=== PATIENT | female | born 1985 ===

== ENCOUNTER 2021-04-18 20:27 | Inpatient (IN) | payer OTHER ==
[2021-04-18] MEDS ORDERED: DINOPROSTONE 10 MG VAG SUPP VG ONE (22:51)
[2021-04-18 23:19] LABS: Hematocrit 37.8 % (30.3-42.9); Hemoglobin 13.1 gm/dl (10.1-14.3); Mean Corpuscular HGB Conc 35 % (30-34); Mean Corpuscular Volume 98 fl (79-97); Platelet Count 214 K/mm3 (140-440); Red Blood Count 3.84 M/mm3 (3.65-5.03); Red Cell Distribution Width 13.6 % (13.2-15.2)
[2021-04-18] MEDS: LACTATED RINGERS 1,000 ML IV SCH (23:20)
[2021-04-18] MEDS ORDERED: TERBUTALINE 1 MG/1 ML INJ SUB-Q PRN (23:30)
[2021-04-18] MEDS ORDERED: BUTORPHANOL 2 MG/1 ML INJ IV PRN ×2 (23:30)
[2021-04-18] MEDS ORDERED: NALOXONE 0.4 MG/1 ML INJ IV PRN (23:30)
[2021-04-18] MEDS ORDERED: fentaNYL 100 MCG/2 ML INJ IV PRN (23:30)
[2021-04-18] MEDS ORDERED: METHYLERGONOVINE MALEATE 0.2 MG/ML VIAL IM PRN (23:30)
[2021-04-18] MEDS ORDERED: ACETAMINOPHEN 325 MG TAB PO PRN (23:30)
[2021-04-18] MEDS ORDERED: ONDANSETRON 4 MG/2 ML INJ IV PRN (23:30)
[2021-04-18] MEDS ORDERED: PROMETHAZINE 25 MG RECT SUPP PR PRN (23:30)
[2021-04-18] MEDS ORDERED: miSOPROStol 200 MCG TAB PR PRN (23:30)
[2021-04-18] MEDS ORDERED: NalbUPHINE 10 MG/1 ML INJ IV PRN (23:30)
[2021-04-18] MEDS ORDERED: LIDOCAINE (2%) 20 MG/1 ML VIAL 20 ML MDV INFILTRATI ONE (23:30)
[2021-04-18] MEDS ORDERED: OXYTOCIN 10 UNIT/1 ML INJ IM PRN (23:30)
[2021-04-18] MEDS ORDERED: OXYTOCIN DRIP 30 UNITS/500 ML BAG IV SCH (23:30)
[2021-04-18] MEDS ORDERED: MINERAL OIL 30 ML ORAL LIQD PO PRN (23:30)
[2021-04-18] MEDS ORDERED: CARBOPROST TROMETHAMINE 250 MCG/1 ML INJ IM PRN (23:30)
[2021-04-18] MEDS ORDERED: LOPERAMIDE 2 MG CAP PO PRN (23:30)
[2021-04-18] MEDS ORDERED: ePHEDrine SULFATE 50 MG/1 ML INJ IV PRN (23:50)
[2021-04-19] MEDS: LACTATED RINGERS 1,000 ML IV SCH (07:35)
[2021-04-19] MEDS ORDERED: LIDOCAINE (2%) 20 MG/1 ML VIAL 20 ML MDV INFILTRATI ONE (08:55)
[2021-04-19] MEDS: OXYTOCIN DRIP 30 UNITS/500 ML BAG IV SCH ×2 (09:00→09:36)
--- NOTE | 2021-04-19 09:37 | History and Physical Report ---
History of Present Illness Date of examination: 04/19/21 Date of admission: 04/18/21 20:27 Chief complaint: Presents for a scheduled postdates induction of labor History of present illness: care at [facility], course complicated by b ilateral renal pyelectasis (co-managed with [facility]) resolved by 02/27/2021. Past History Past Medical History: no pertinent history Past Surgical History: no surgical history Family/Genetic History: none Social history: no significant social history, - Obstetrical History Expected Date of Delivery: 04/11/21 Actual Gestation: 41 Week(s) 1 Day(s) : 3 Para: 2 Hx # Term Pregnancies: 2 Number of Living Children: 2 Medications and Allergies Allergies Allergy/AdvReac Type Severity Reaction Status Date / Time No Known Allergies Allergy Unverified 04/18/21 22:32 Home Medications Medication Instructions Recorded Confirmed Last Taken Type No Known Home Medications [No 04/18/21 04/18/21 Unknown History Reported Home Medications] Active Meds: Active Medications Acetaminophen (Acetaminophen 325 Mg Tab) 650 mg PO Q4H PRN PRN Reason: Pain, Mild (1-3) Hydrocodone Bitart/Acetaminophen (Hydrocodone/Acetaminophen 5-325 Mg Tab) 2 each PO Q6H PRN PRN Reason: Pain, Moderate (4-6) Bisacodyl (Bisacodyl 10 Mg Rect Supp) 10 mg SC BID PRN PRN Reason: Constipation Butorphanol Tartrate (Butorphanol 2 Mg/1 Ml Inj) 1 mg IV Q2H PRN PRN Reason: Pain, Moderate(4-6) LABOR PAIN Butorphanol Tartrate (Butorphanol 2 Mg/1 Ml Inj) 2 mg IV Q2H PRN PRN Reason: Pain , Severe (7-10) Last Admin: 04/19/21 07:34 Dose: 2 mg Documented by: Carboprost Tromethamine (Carboprost Tromethamine 250 Mcg/1 Ml Inj) 250 mcg IM ONCE PRN PRN Reason: Uterine Bleeding Diphenhydramine HCl (Diphenhydramine 25 Mg Cap) 25 mg PO Q6H PRN PRN Reason: Itching Ephedrine Sulfate (Ephedrine Sulfate 50 Mg/1 Ml Inj) 10 mg IV Q2M PRN PRN Reason: Hypotension Fentanyl (Fentanyl 100 Mcg/2 Ml Inj) 100 mcg IV Q2H PRN PRN Reason: Pain,Severe (7-10) LABOR PAIN Oxytocin/Sodium Chloride (Pitocin/Ns 30 Unit/500ml) 30 units in 500 mls @ 2 mls/hr IV TITR SATHISH; Protocol Lactated Ringer's (Lactated Ringers) 1,000 mls @ 125 mls/hr IV DIRECT SATHISH Last Admin: 04/19/21 07:35 Dose: 125 mls/hr Documented by: Oxytocin/Sodium Chloride (Pitocin/Ns 30 Unit/500ml) 30 units in 500 mls @ 40 mls/hr IV TITR SATHISH; Protocol Last Admin: 04/19/21 09:00 Dose: 40 mls/hr, 40 mls/hr Documented by: Ibuprofen (Ibuprofen 600 Mg Tab) 600 mg PO Q6H SATHIHS Loperamide HCl (Loperamide 2 Mg Cap) 2 mg PO ONCE PRN PRN Reason: give with Hemabate Magnesium Hydroxide (Magnesium Hydroxide (Mom) Oral Liqd Udc) 30 ml PO HS PRN PRN Reason: Constipation Methylergonovine Maleate (Methylergonovine Maleate 0.2 Mg/Ml Vial) 0.2 mg IM ONCE PRN PRN Reason: Uterine Bleeding Mineral Oil (Mineral Oil 30 Ml Oral Liqd) 30 ml PO QHS PRN PRN Reason: Constipation Misoprostol (Misoprostol 200 Mcg Tab) 800 mcg SC ONCE PRN PRN Reason: Uterine Bleeding Multi-Ingredient Ointment (Lanolin/Zinc/Dimethicone (Lansinoh) 7 Gm) 1 applic TP PRN PRN PRN Reason: Sore Nipples Multivitamins/Iron/Calcium ( Umg10-Nc Fumarate-Folic Acid Vit Tab) 1 each PO QDAY [facility] Nalbuphine HCl (Nalbuphine 10 Mg/1 Ml Inj) 10 mg IV Q2H PRN PRN Reason: Pain, Moderate (4-6) Naloxone HCl (Naloxone 0.4 Mg/1 Ml Inj) 0.1 mg IV Q2MIN PRN PRN Reason: Res Rate </= 8 or 02 SAT < 92% Ondansetron HCl (Ondansetron 4 Mg/2 Ml Inj) 4 mg IV Q8H PRN PRN Reason: Nausea And Vomiting Oxytocin (Oxytocin 10 Unit/1 Ml Inj) 10 unit IM ONCE PRN PRN Reason: Uterine Bleeding Promethazine HCl (Promethazine 25 Mg Rect Supp) 25 mg SC Q6H PRN PRN Reason: N/V if unable to take po Promethazine HCl (Promethazine 25 Mg Tab) 25 mg PO Q6H PRN PRN Reason: Nausea And Vomiting Sodium Chloride (Sodium Chloride 0.9% 10 Ml Flush Syringe) 10 ml IV PRN NR Terbutaline Sulfate (Terbutaline 1 Mg/1 Ml Inj) 0.25 mg SUB-Q ONCE PRN PRN Reason: Hyperstimulation/Hypertonicity Witch Jo Ann/Glycerin (Witch Jo Ann/ Glycerin Pad) 1 each TP PRN PRN PRN Reason: Hemorrhoid/cleansing/soothing Review of Systems All systems: negative - Vital Signs Vital signs: Vital Signs Temp Pulse Resp BP Pulse Ox 98.1 F 86 18 122/77 100 04/18/21 20:57 04/18/21 20:57 04/18/21 20:57 04/18/21 20:57 04/18/21 20:57 Temp Pulse Resp BP Pulse Ox 98.9 F 103 H 18 125/81 98 04/19/21 07:45 04/19/21 09:28 04/18/21 20:57 04/19/21 09:27 04/19/21 09:28 - Physical Exam Breasts: Positive: normal Cardiovascular: Regular rate Lungs: Positive: Clear to auscultation, Normal air movement Abdomen: Positive: normal appearance, soft, normal bowel sounds Genitourinary (Female): Positive: normal external genitalia, normal perenium Vagina: Positive: normal moisture Uterus: Positive: enlarged Anus/Rectum: Positive: normal perianal skin Extremities: Positive: normal - Obstetrical FHR: category 1 Uterine Contraction Monitor Mode: External Cervical Dilatation: 1.5 Cervical Effacement Percentage: 20 station: -3 Uterine Contraction Pattern: Irregular Uterine Tone Measurement Phase: Resting Results Result Diagrams: 04/18/21 21:30 Abnormal lab results 04/18/21 Range/Units 21:30 MCV 98 H (79-97) fl MCH 34 H (28-32) pg MCHC 35 H (30-34) % All other labs normal. Assessment and Plan A: IUP @ 41 1/7 Weeks Category I Tracing GBS Negative P: Admit to L&D Per Routine Orders Cervidil Induction
--- NOTE | 2021-04-19 09:56 | Procedure Note ---
OB Delivery Note - Delivery Date of Delivery: 04/19/21 (0848) Surgeon: CALVIN DYSON Estimated blood loss: 100cc - Vaginal Delivery presentation: vertex Delivery position: OA Intrapartum events: mult.variable deceleratio Delivery induction: cervidil Delivery monitor: external FHT, external uterine Route of delivery: Delivery placenta: spontaneous Delivery cord: nuchal cord Delivery laceration: 1st degree Delivery repair: vicryl Anesthesia: local Delivery comments: of a live 7'6 male over a 1st degree perineal laceration under IV pain control with Apgars of 8 and 9 at 0848 on 04/19/2021. Nuchal cord x 1 manually reduced with delivery of body. Infant directly to maternal abd/chest, skin to skin contact. Spontaneous delivery of placenta complete and intact with [place] side presenting at 0851. Fundus is firm and midline located 4 below the U. Lochia is scant. Perineal laceration repaired with 2-0 Vicryl on a SH under local 2% Lidocaine. Delayed cord clamping and cutting; Cord cut by Father of the Baby. Cord blood collected; Placenta discarded. - Infant A at 1 minute: 8 at 5 minutes: 9 Infant Gender: Male (7'6)
[2021-04-19] MEDS ORDERED: diphenhydrAMINE 25 MG CAP PO PRN (10:00)
[2021-04-19] MEDS ORDERED: WITCH HAZEL/ GLYCERIN PAD TP PRN (10:00)
[2021-04-19] MEDS ORDERED: HYDROcodone/ACETAMINOPHEN 5-325 MG TAB PO PRN (10:00)
[2021-04-19] MEDS ORDERED: PROMETHAZINE 25 MG TAB PO PRN (10:00)
[2021-04-19] MEDS ORDERED: LANOLIN/ZINC/DIMETHICONE (LANSINOH) 7 GM TP PRN (10:00)
[2021-04-19] MEDS: PRENATAL VIT27-FE FUMARATE-FOLIC ACID VIT TAB PO SCH (12:01)
[2021-04-19] MEDS: IBUPROFEN 600 MG TAB PO SCH ×3 (12:01→23:30)
[2021-04-19] MEDS ORDERED: MAGNESIUM HYDROXIDE (MOM) ORAL LIQD UDC PO PRN (22:00)
[2021-04-20 00:31] LABS: Hematocrit 35.2 % (30.3-42.9); Hemoglobin 12.4 gm/dl (10.1-14.3)
--- NOTE | 2021-04-20 04:50 | Progress Note ---
Subjective - Subjective Date of service: 04/20/21 Interval history: PPD#1 stable continue routine PP care Ashanti Simpson MD Patient reports: appetite normal, voiding normally, pain well controlled, ambulating normally [place]: doing well Objective - Vital Signs Latest vital signs: Vital Signs Temp Pulse Resp BP BP Pulse Ox Pulse Ox 04/19/21 23:42 97.0 F L 88 16 105/60 95 04/19/21 23:30 20 04/19/21 19:42 98.0 F 83 18 107/67 96 04/19/21 19:40 98 04/19/21 15:42 97.9 F 18 118/68 04/19/21 11:32 99.5 F 97 H 18 130/70 100 100 04/19/21 11:03 98 H 99 04/19/21 10:58 87 98 04/19/21 10:57 92 H 120/68 04/19/21 10:53 102 H 99 04/19/21 10:48 99 H 99 04/19/21 10:47 84 121/66 04/19/21 10:43 89 97 04/19/21 10:38 103 H 99 04/19/21 10:37 100 H 124/65 04/19/21 10:33 98 H 98 04/19/21 10:28 101 H 98 04/19/21 10:27 94 H 133/68 04/19/21 10:23 109 H 99 04/19/21 10:18 100 H 97 04/19/21 10:17 96 H 123/65 04/19/21 10:13 98 H 98 04/19/21 10:08 94 H 130/75 98 04/19/21 10:03 107 H 97 04/19/21 09:58 89 97 04/19/21 09:57 99 H 118/70 04/19/21 09:53 94 H 97 04/19/21 09:48 88 98 04/19/21 09:47 88 118/74 04/19/21 09:43 91 H 98 04/19/21 09:38 93 H 98 04/19/21 09:37 89 120/68 04/19/21 09:36 94 H 119/69 04/19/21 09:33 100 H 97 04/19/21 09:28 103 H 98 04/19/21 09:27 105 H 125/81 04/19/21 09:23 100 H 98 04/19/21 09:18 107 H 99 04/19/21 09:17 103 H 116/74 04/19/21 09:13 108 H 99 04/19/21 09:08 112 H 100 04/19/21 09:03 108 H 125/70 100 04/19/21 08:58 109 H 99 04/19/21 08:53 119 H 98 04/19/21 08:48 130 H 100 04/19/21 08:43 119 H 98 04/19/21 08:38 125 H 98 04/19/21 08:33 117 H 99 04/19/21 08:28 119 H 98 04/19/21 08:23 114 H 99 04/19/21 08:18 127 H 98 04/19/21 08:13 107 H 98 04/19/21 08:08 121 H 98 04/19/21 08:04 100 04/19/21 08:03 106 H 146/79 96 04/19/21 07:58 114 H 96 04/19/21 07:53 104 H 96 04/19/21 07:48 103 H 95 04/19/21 07:45 98.9 F 04/19/21 07:43 111 H 94 04/19/21 07:39 102 H 93 04/19/21 07:38 101 H 97 04/19/21 07:33 97 H 98 04/19/21 07:28 106 H 98 04/19/21 07:23 109 H 99 04/19/21 07:18 104 H 99 04/19/21 07:13 98 H 98 04/19/21 07:08 91 H 98 04/19/21 07:03 111 H 140/83 98 04/19/21 06:58 104 H 98 04/19/21 06:53 110 H 100 04/19/21 06:42 114 H 98 04/19/21 06:37 105 H 99 04/19/21 06:32 94 H 98 04/19/21 06:27 92 H 99 04/19/21 06:22 107 H 99 04/19/21 06:17 89 99 04/19/21 06:12 92 H 99 04/19/21 06:07 109 H 99 04/19/21 06:03 87 127/79 04/19/21 06:02 91 H 98 04/19/21 05:57 91 H 98 04/19/21 05:52 84 98 04/19/21 05:47 92 H 98 04/19/21 05:42 92 H 99 04/19/21 05:37 98 H 99 04/19/21 05:32 87 99 04/19/21 05:27 82 97 04/19/21 05:22 92 H 97 04/19/21 05:17 84 98 04/19/21 05:12 94 H 98 04/19/21 05:07 91 H 98 04/19/21 05:03 79 120/72 04/19/21 05:02 90 97 04/19/21 04:57 77 97 04/19/21 04:52 77 97 Intake and Output 04/19/21 04/19/21 04/20/21 15:59 23:59 07:59 Intake Total 284 200 Output Total 300 Balance -16 200 Intake: IV 24 PITOCin/NS 30 UNIT/500ML 24 30 units In 500 ml @ 40 mls/hr IV TITR SATHISH Rx#: [id number] Oral 260 200 Output: Urine 300 Void 300 Other: Total, Intake Amount 260 200 Total, Output Amount 300 # Voids Void 1 1 Estimated Blood Loss 100 - Exam Cardiovascular: Present: Regular rate Lungs: Present: Clear to auscultation Abdomen: Present: normal appearance, soft, normal bowel sounds Uterus: Present: fundal height below umbilicus Extremities: Present: normal Deep Tendon Reflex Grade: Normal +2
--- NOTE | 2021-04-20 04:52 | Discharge Summary ---
Providers - Providers Date of Admission: 04/18/21 20:27 Date of discharge: 04/21/21 Attending physician: MARY WAGNER MD Primary care physician: MARY WAGNER MD Hospitalization Reason for admission: induction of labor Delivery: Condition at discharge: Stable Disposition: 01 HOME / SELF CARE / HOMELESS Plan - Provider Discharge Summary Additional instructions: [] Smoking cessation referral if applicable(refer to patient education folder for contact #) [] Refer to [facility]'s [facility] Booklet Call your doctor immediately for: * Fever > 100.5 * Heavy vaginal bleeding ( >1 pad per hour) * Severe persistent headache * Shortness of breath * Reddened, hot, painful area to leg or breast * Drainage or odor from incision. * Keep incision clean and dry at all times and follow doctor's instructions regarding bathing/showering - Follow up plan Follow up: MARY WAGNER MD [Primary Care Provider] - 6 Weeks
[2021-04-20] MEDS: IBUPROFEN 600 MG TAB PO SCH ×3 (05:24→23:26)
[2021-04-20] MEDS: PRENATAL VIT27-FE FUMARATE-FOLIC ACID VIT TAB PO SCH (18:02)
[2021-04-21] MEDS: IBUPROFEN 600 MG TAB PO SCH ×2 (05:26→12:52)
[2021-04-21 12:29] VITALS: BP 122/83
[2021-04-21] MEDS: PRENATAL VIT27-FE FUMARATE-FOLIC ACID VIT TAB PO SCH (12:52)
== END 2021-04-21 13:23 | disposition home or self-care (01) | DRG 807 ==
LOC: LD 20:27 → OB 04-19 11:26
PROC: 10E0XZZ Delivery of Products of Conception, External Approach (ICD-10-PCS; principal; 2021-04-19)
PROC: 3E0P7VZ Introduction of Hormone into Female Reproductive, Via Natural or Artificial Opening (ICD-10-PCS; 2021-04-19)
PROC: 0HQ9XZZ Repair Perineum Skin, External Approach (ICD-10-PCS; 2021-04-19)
DX: O76 Abnormality in fetal heart rate and rhythm complicating labor and delivery (principal); Z37.0 Single live birth; Z3A.41 41 weeks gestation of pregnancy; O48.0 Post-term pregnancy; O69.81X0 Labor and delivery complicated by cord around neck, without compression, not applicable or unspecified; O70.0 First degree perineal laceration during delivery
CPT/HCPCS: 36415; 59200; 85014; 85018; 85027; 86592; 86850; 86900; 86901; G0378; J0595; J2590; J7120; U0003